=== PATIENT | female | born 1990 | race Caucasian/White ===

== ENCOUNTER 2016-07-06 09:05 | Emergency (ER) | payer OTHER ==
[~2016-07-06] VITALS: Ht 167.6 cm; Wt 83.0 kg
[2016-07-06 09:43] VITALS: BP 128/76
--- NOTE | 2016-07-06 14:21 | NUR ---
PATIENT AMBULATED TO BED 3
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
--- NOTE | 2016-07-06 14:32 | NUR ---
DR TINSLEY AT BEDSIDE.
[2016-07-06] MEDS ORDERED: ACETAMIN/CODEINE 120/12MG-5ML 5 ML UDC PO ONE (14:40)
--- NOTE | 2016-07-06 15:29 | NUR ---
PT RESTING ON BED;NO ACUTE DISTRESS NOTED AT THIS TIME;WILL CONTINUE TO MONITOR PT.
--- NOTE | 2016-07-06 16:25 | NUR ---
Patient discharged with v/s stable. Written and verbal after care instructions given and explained. Patient alert, oriented and verbalized understanding of instructions. Ambulatory with steady gait. All questions addressed prior to discharge. ID band removed. Patient advised to follow up with PMD. Rx of TYLENOL W/CODEINE given. Patient educated on indication of medication including possible reaction and side effects. Opportunity to ask questions provided and answered.
[2016-07-06 16:27] VITALS: BP 100/51
== END 2016-07-06 16:25 | disposition home or self-care (01) ==
LOC: MED 09:05
DX: J02.8 Acute pharyngitis due to other specified organisms (principal); B97.89 Other viral agents as the cause of diseases classified elsewhere; R59.0 Localized enlarged lymph nodes

== ENCOUNTER 2018-05-09 19:09 | Emergency (ER) | payer OTHER ==
[~2018-05-09] VITALS: Ht 167.6 cm; Wt 99.8 kg
[2018-05-09 19:32] VITALS: BP 143/84
--- NOTE | 2018-05-09 19:34 | NUR ---
PT AMBULATED TO LOBBY WITH VSS.
--- NOTE | 2018-05-09 21:22 | NUR ---
PT AMBULATED TO BED 08.
--- NOTE | 2018-05-09 21:44 | NUR ---
PT TO ED WITH C/O RT FOREARM PAIN. PT REPORTS TINGLING TO ARM. DENIES INJURY OR TRAUMA. ROM PRESENT. PT PLACED INTO BED, PENDING MD FONG.
[2018-05-09 22:46] VITALS: BP 143/84
--- NOTE | 2018-05-09 22:47 | NUR ---
Patient discharged with v/s stable. Written and verbal after care instructions given and explained. Patient alert, oriented and verbalized understanding of instructions. Ambulatory with steady gait. All questions addressed prior to discharge. ID band removed. Patient advised to follow up with PMD. Rx of GABAPENTIN given. Patient educated on indication of medication including possible reaction and side effects. Opportunity to ask questions provided and answered.
== END 2018-05-09 22:46 | disposition home or self-care (01) ==
LOC: MED 19:09
DX: M54.12 Radiculopathy, cervical region (principal); M79.632 Pain in left forearm
CPT/HCPCS: 72040; 73080; 99283

== ENCOUNTER 2022-01-05 09:06 | Emergency (ER) | payer OTHER ==
[~2022-01-05] VITALS: Ht 165.1 cm; Wt 91.8 kg
[2022-01-05 09:16] VITALS: BP 145/87
--- NOTE | 2022-01-05 09:24 | NUR ---
PT AMB TO BED 7.
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
--- NOTE | 2022-01-05 09:52 | NUR ---
MD SANDERSON AT BEDSIDE FOR EVALUATION
--- NOTE | 2022-01-05 10:10 | NUR ---
PT TAKEN TO CT VIA WHEELCHAIR
--- NOTE | 2022-01-05 10:25 | NUR ---
PT BROUGHT BACK FROM CT VIA WHEELCHAIR
[2022-01-05] MEDS ORDERED: KETOROLAC 30 MG/ML VIAL IM ONE (10:55)
[2022-01-05] MEDS ORDERED: NAPR-54 PO (11:45)
[2022-01-05 11:55] VITALS: BP 133/80
--- NOTE | 2022-01-05 11:55 | NUR ---
Patient discharged with v/s stable. Written and verbal after care instructions FOR CONCUSSION AND CERVICAL SPRAIN given and explained. Patient alert, oriented and verbalized understanding of instructions. Ambulatory with steady gait. All questions addressed prior to discharge. ID band removed. Patient advised to follow up with PMD. Rx of NAPROXEN given. Opportunity to ask questions provided and answered.
--- NOTE | 2022-01-05 12:02 | NUR ---
The patient's care was reviewed and supervised by ED Agency Nurse 9, RN, RN.
== END 2022-01-05 11:55 | disposition home or self-care (01) ==
LOC: MED 09:06
DX: S06.0X0A Concussion without loss of consciousness, initial encounter (principal); S16.1XXA Strain of muscle, fascia and tendon at neck level, initial encounter; R41.0 Disorientation, unspecified; R11.0 Nausea; Z79.899 Other long term (current) drug therapy; Y04.8XXA Assault by other bodily force, initial encounter; Y93.89 Activity, other specified; Y92.89 Other specified places as the place of occurrence of the external cause; Y99.8 Other external cause status
CPT/HCPCS: 70450; 72125; 81025; 96372; 99284; J1885

== ENCOUNTER 2022-02-15 05:53 | Emergency (ER) | payer OTHER ==
[~2022-02-15] VITALS: Ht 165.1 cm; Wt 86.2 kg
[~2022-02-15 05:53] MED LIST: NAPR-54 PO
[2022-02-15 05:55] VITALS: BP 124/84
--- NOTE | 2022-02-15 05:58 | NUR ---
TO LOBBY A/W BED AMBULATORY
--- NOTE | 2022-02-15 06:30 | NUR ---
SEEN AND EXAMINED BY GURPREET
[2022-02-15] MEDS ORDERED: NAPR-1704 PO (06:56)
[2022-02-15] MEDS ORDERED: PHEN177S23 PO (06:56)
[2022-02-15 06:58] VITALS: BP 124/84
--- NOTE | 2022-02-15 06:58 | NUR ---
Patient discharged with v/s stable. Written and verbal after care instructions given and explained. Patient alert, oriented and verbalized understanding of instructions. Ambulatory with steady gait. All questions addressed prior to discharge. ID band removed. Patient advised to follow up with PMD. Rx of NAPTOSYN, CHLORASEPTIC 177 OR given. Patient educated on indication of medication including possible reaction and side effects. Opportunity to ask questions provided and answered.
== END 2022-02-15 06:58 | disposition home or self-care (01) ==
LOC: MED 05:53
DX: B34.9 Viral infection, unspecified (principal); J02.9 Acute pharyngitis, unspecified; Z90.49 Acquired absence of other specified parts of digestive tract; Z98.890 Other specified postprocedural states; Z79.1 Long term (current) use of non-steroidal anti-inflammatories (NSAID)
CPT/HCPCS: 99282

== ENCOUNTER 2022-08-07 09:16 | Emergency (ER) | payer OTHER ==
[~2022-08-07] VITALS: Ht 170.2 cm; Wt 91.7 kg
[~2022-08-07 09:16] MED LIST changes: +NAPR-1704 PO; +PHEN177S23 PO
[2022-08-07 09:42] VITALS: BP 124/72
[2022-08-07] MEDS ORDERED: DICL100G5 TP (10:44)
[2022-08-07] MEDS ORDERED: KETOROLAC 30 MG/ML VIAL IM ONE (10:45)
--- NOTE | 2022-08-07 10:50 | NUR ---
LONG FINGER SPLINT APPLIED. + CMS
--- NOTE | 2022-08-07 10:58 | NUR ---
Patient discharged with v/s stable. Written and verbal after care instructions given and explained. Patient alert, oriented and verbalized understanding of instructions. Ambulatory with steady gait. All questions addressed prior to discharge. ID band removed. Patient advised to follow up with PMD. Rx of DICLOFENAC SODIUM given. Patient educated on indication of medication including possible reaction and side effects. Opportunity to ask questions provided and answered.
== END 2022-08-07 10:55 | disposition home or self-care (01) ==
LOC: MED 09:16
DX: M79.645 Pain in left finger(s) (principal); Z90.710 Acquired absence of both cervix and uterus; Z79.899 Other long term (current) drug therapy; Z79.1 Long term (current) use of non-steroidal anti-inflammatories (NSAID)
CPT/HCPCS: 29130; 73140; 96372; 99283; J1885

== ENCOUNTER 2023-11-07 10:06 | Emergency (ER) | payer OTHER ==
[~2023-11-07] VITALS: Ht 165.1 cm; Wt 88.5 kg
[~2023-11-07 10:06] MED LIST changes: +DICL100G32 TP; +NAPR-337 PO; -NAPR-54 PO
[2023-11-07 10:26] VITALS: BP 128/86; PULSE 76; RESP 22; TEMP 99.6; O2SAT 98
[2023-11-07] MEDS ORDERED: ACET500T99 PO (11:31)
[2023-11-07] MEDS ORDERED: ACETAMINOPHEN EXTRA STRENGTH 500 MG TAB ONE (11:37)
[2023-11-07] MEDS: ACETAMINOPHEN EXTRA STRENGTH 500 MG TAB PO ONE (11:40)
[2023-11-07 11:58] VITALS: BP 122/82; PULSE 77; RESP 16; TEMP 98.2; O2SAT 98
== END 2023-11-07 11:58 | disposition home or self-care (01) ==
LOC: MED 10:06
DX: S93.402A Sprain of unspecified ligament of left ankle, initial encounter (principal); Z90.49 Acquired absence of other specified parts of digestive tract; Z90.710 Acquired absence of both cervix and uterus; Z98.890 Other specified postprocedural states; Z79.1 Long term (current) use of non-steroidal anti-inflammatories (NSAID); Z79.899 Other long term (current) drug therapy; X58.XXXA Exposure to other specified factors, initial encounter; Y93.A1 Activity, exercise machines primarily for cardiorespiratory conditioning; Y92.39 Other specified sports and athletic area as the place of occurrence of the external cause; Y99.8 Other external cause status
CPT/HCPCS: 73610; 73630; 99284; Q0092